=== PATIENT | male | born 1970 | race Caucasian/White ===

== ENCOUNTER 2016-11-14 14:37 | Emergency (ER) | payer OTHER ==
[~2016-11-14] VITALS: Ht 160 cm; Wt 69.4 kg
[~2016-11-14 14:37] MED LIST: LISI-420 PO; METF1000 PO; MIC5 PO; ORE25 PO; SULF1TAB12 PO
[2016-11-14 15:38] VITALS: BP 146/100
--- NOTE | 2016-11-14 19:24 | NUR ---
46 Y/O W/C/O LOWER ABD PAIN AND BLOOD IN URINE X TODAY. DENEIS ANY FEVER. NO S/S OF DISTRESS NOTED AT THIS MOMENT. ER MD EVALUATING PT.
--- NOTE | 2016-11-14 19:24 | NUR ---
Dr. Damico evaluating patient
--- NOTE | 2016-11-14 19:24 | NUR ---
PT TAKEN TO OF
[2016-11-14] MEDS ORDERED: PHENAZOPYRIDINE 100 MG TAB PO ONE (19:35)
[2016-11-14 19:51] LABS: BASOPHILS # (AUTO) 0.3 K/uL (0.00-0.22); BASOPHILS % (AUTO) 2.9 % (0.0-2.0); EOSINOPHILS # (AUTO) 0.2 K/uL (0-0.4); EOSINOPHILS % (AUTO) 2.4 % (0.0-4.0); HEMATOCRIT 48.3 % (36-52); HEMOGLOBIN 16.4 g/dL (12.0-18.0); LYMPHOCYTES # (AUTO) 3.4 K/uL (2.0-11.5); LYMPHOCYTES % (AUTO) 33.6 % (20.5-51.1); MEAN CORPUSCULAR HEMOGLOBIN 29 pg (27-31); MEAN CORPUSCULAR HGB CONC 34 g/dL (33-37); MEAN CORPUSCULAR VOLUME 86 fL (80-94); MONOCYTES # (AUTO) 0.8 K/uL (0.8-1.0); MONOCYTES % (AUTO) 8.2 % (1.7-9.3); NEUTROPHILS # (AUTO) 5.4 K/uL (1.8-7.7); NEUTROPHILS % (AUTO) 52.9 % (42.2-75.2); PLATELET COUNT (AUTO) 348 K/uL (140-450); RED BLOOD CELL COUNT(AUTO) 5.62 MIL/uL (4.20-6.10); RED CELL DISTRIBUTION WIDTH 12.3 % (11.6-13.7); WHITE BLOOD COUNT (AUTO) 10.1 K/uL (4.8-10.8)
[2016-11-14 20:07] LABS: ANION GAP 10.2 (8-16); CALCIUM 8.5 mg/dL (8.5-10.1); CARBON DIOXIDE 27.7 mmol/L (21-32); CREATININE 0.9 mg/dL (0.6-1.3); POTASSIUM 3.9 mmol/L (3.5-5.1)
[2016-11-14 20:19] LABS: APPEARANCE,URINE CLEAR (CLEAR); BILIRUBIN,URINE NEGATIVE (NEGATIVE); BLOOD, URINE NEGATIVE (NEGATIVE); LEUKOCYTE ESTERASE ,URINE NEGATIVE (NEGATIVE); NITRITE, URINE NEGATIVE (NEGATIVE); PROTEIN,URINE NEGATIVE (NEGATIVE); UGLUCOSE 3+ (NEGATIVE); UROBILINOGEN,URINE 0.2 EU/dL (0.2 - 1)
[2016-11-14 20:23] LABS: COLOR,URINE YELLOW (YELLOW)
[2016-11-14 20:24] LABS: BACTERIA,URINE None Seen /HPF (None Seen); RBC,URINE NONE SEEN /HPF (0-5); SQUAMOUS EPITHELIAL CELL,UR None Seen /LPF (0-3 (FEW)); WBC,URINE NONE SEEN /HPF (0-5)
[2016-11-14 20:39] VITALS: BP 147/88
--- NOTE | 2016-11-14 20:39 | NUR ---
PER ER MD PT STABLE WITH VSS. Written and verbal after care instructions given and explained. Patient alert, oriented and verbalized understanding of instructions. Ambulatory with steady gait. All questions addressed prior to discharge. ID band removed. Patient advised to follow up with PMD TOMORROW OR RETURN TO ER IF CONDITION WORSENS. Rx of CIPRO, AND PHENAZOPYRIDINE given. Patient educated on indication of medication including possible reaction and side effects. Opportunity to ask questions provided and answered.
[2016-11-16 06:16] LABS: CHLAMYDIA TRACHOMATIS AMP DNA Negative (Negative)
== END 2016-11-14 20:39 | disposition home or self-care (01) ==
LOC: MED 14:37
DX: R31.9 Hematuria, unspecified (principal); R30.0 Dysuria; E11.9 Type 2 diabetes mellitus without complications; I10 Essential (primary) hypertension
CPT/HCPCS: 36415; 80048; 81001; 85025; 87491; 99284

== ENCOUNTER 2018-02-11 23:07 | Emergency (ER) | payer BC, OTHER ==
[~2018-02-11] VITALS: Ht 160 cm; Wt 70.3 kg
[2018-02-11 23:13] VITALS: BP 150/100
--- NOTE | 2018-02-11 23:16 | NUR ---
TO BED # 2 AMBULATORY ,REPORT GIVEN TO TEX HARTLEY.
--- NOTE | 2018-02-11 23:17 | NUR ---
47 YO M TO ER FOR ANXITY AND INSOMNIA, PT STATES THAT HE HAS HAD DIFFICULTY SLEEPING X6 MO WITH AN INCREASE IN THE LAST MONTH AND BEEN INCONTINENT, FREQUENCY AND URGENCY, DENIES ANY BURNING ITICHING WITH URINATION. PT DENIES AHMET N/V/D, STATES BEING CONSTIPATED, LAST BM WAS TODAY. PT STATES THAT HE HAS NOT BEEN TAKING HIS DM MEDICATIONS PRESCRIBED DUE TO "THEY DONT TASTE GOOD". BS AT 375 IN TRIAGE . ER MD MADE AWEAR, WILL CONTINUE TO MONITOR
[2018-02-12 00:09] LABS: BASOPHILS # (AUTO) 0.1 K/uL (0.00-0.22); BASOPHILS % (AUTO) 0.6 % (0.0-2.0); EOSINOPHILS # (AUTO) 0.1 K/uL (0-0.4); EOSINOPHILS % (AUTO) 0.9 % (0.0-4.0); HEMATOCRIT 47.8 % (36-52); HEMOGLOBIN 16.8 g/dL (12.0-18.0); LYMPHOCYTES # (AUTO) 3.3 K/uL (2.0-11.5); LYMPHOCYTES % (AUTO) 30.8 % (20.5-51.1); MEAN CORPUSCULAR HEMOGLOBIN 29 pg (27-31); MEAN CORPUSCULAR HGB CONC 35 g/dL (33-37); MEAN CORPUSCULAR VOLUME 83.5 fL (80-94); MONOCYTES # (AUTO) 0.7 K/uL (0.8-1.0); MONOCYTES % (AUTO) 6.2 % (1.7-9.3); NEUTROPHILS # (AUTO) 6.5 K/uL (1.8-7.7); NEUTROPHILS % (AUTO) 61.5 % (42.2-75.2); PLATELET COUNT (AUTO) 354 K/uL (140-450); RED BLOOD CELL COUNT(AUTO) 5.73 MIL/uL (4.20-6.10); RED CELL DISTRIBUTION WIDTH 13.3 % (11.6-13.7); WHITE BLOOD COUNT (AUTO) 10.6 K/uL (4.8-10.8)
[2018-02-12 00:18] LABS: ANION GAP 14.6 (8-16); CARBON DIOXIDE 28.8 mmol/L (21-32); POTASSIUM 4.4 mmol/L (3.5-5.1)
[2018-02-12 00:23] LABS: ALBUMIN 3.7 g/dL (3.4-5.0)
--- NOTE | 2018-02-12 00:28 | NUR ---
XRAY AT BED SIDE
[2018-02-12 00:31] LABS: CREATINE KINASE MB 2.1 ng/mL (0-3.6)
[2018-02-12 01:24] VITALS: BP 152/94
--- NOTE | 2018-02-12 01:24 | NUR ---
Patient discharged with v/s stable. Written and verbal after care instructions given and explained. Patient verbalized understanding. Ambulatory with steady gait. All questions addressed prior to discharge. Advised to follow up with PMD.
== END 2018-02-12 01:24 | disposition home or self-care (01) ==
LOC: MED 23:07
DX: E11.65 Type 2 diabetes mellitus with hyperglycemia (principal); F41.9 Anxiety disorder, unspecified; I10 Essential (primary) hypertension; Z79.84 Long term (current) use of oral hypoglycemic drugs; Z79.899 Other long term (current) drug therapy
CPT/HCPCS: 36415; 71045; 80053; 82550; 82553; 84484; 85025; 99285; Q0092

== ENCOUNTER 2019-02-01 21:17 | Emergency (ER) | payer BC ==
[~2019-02-01] VITALS: Ht 160 cm; Wt 70.3 kg
[2019-02-01 21:20] VITALS: BP 157/89
--- NOTE | 2019-02-01 21:23 | NUR ---
TO LOBBY A/W BED, AMBULATORY
--- NOTE | 2019-02-01 22:11 | NUR ---
PATIENT AMB TO BED 8.
--- NOTE | 2019-02-01 22:15 | NUR ---
DR. LAI EVALUATING PATIENT.
--- NOTE | 2019-02-01 22:23 | NUR ---
PT TO ED WITH C/O ABD PAIN IN SUPRAPUBIC AREA WITH DYSURIA X2 DAYS. ABD IS SOFT NON TENDER, NO DISTENTION NOTED. NO BLADDER DISTENTION NOTED. BOWEL SOUNDS ACTIVE. PT PLACED INTO BED, PENDING MD CHAWLA.
--- NOTE | 2019-02-01 22:40 | NUR ---
PT WENT TO CT
[2019-02-01 22:54] LABS: APPEARANCE,URINE CLEAR (CLEAR); BILIRUBIN,URINE NEGATIVE (NEGATIVE); BLOOD, URINE NEGATIVE (NEGATIVE); COLOR,URINE YELLOW (YELLOW); LEUKOCYTE ESTERASE ,URINE NEGATIVE (NEGATIVE); NITRITE, URINE NEGATIVE (NEGATIVE); PH,URINE 6.5 (5.0-9.0); UGLUCOSE 3+ (NEGATIVE)
[2019-02-01 23:06] LABS: RBC,URINE 0 /HPF (0-5); WBC,URINE 0-5 /HPF (0-5)
[2019-02-02] MEDS ORDERED: BLOOD GLUCOSE MONITORING 1 DEV DEV FS ONE (00:15)
[2019-02-02 00:32] VITALS: BP 157/89
--- NOTE | 2019-02-02 00:32 | NUR ---
Patient discharged with v/s stable. Written and verbal after care instructions given and explained. Patient alert, oriented and verbalized understanding of instructions. Ambulatory with steady gait. All questions addressed prior to discharge. ID band removed. Patient advised to follow up with PMD. Rx of BACTRIM WAS given. Patient educated on indication of medication including possible reaction and side effects. Opportunity to ask questions provided and answered.
== END 2019-02-02 00:32 | disposition home or self-care (01) ==
LOC: MED 21:17
DX: R30.0 Dysuria (principal); R31.9 Hematuria, unspecified; R10.9 Unspecified abdominal pain; E11.9 Type 2 diabetes mellitus without complications; I10 Essential (primary) hypertension; Z79.2 Long term (current) use of antibiotics; Z79.84 Long term (current) use of oral hypoglycemic drugs; Z79.899 Other long term (current) drug therapy
CPT/HCPCS: 81001; 99284

== ENCOUNTER 2021-01-30 13:38 | Emergency (ER) | payer SELFPAY ==
[~2021-01-30] VITALS: Ht 160 cm; Wt 65.8 kg
[~2021-01-30 13:38] MED LIST changes: +GLYB-200 PO; +HYDR-4004 PO; -LISI-420 PO; +LISI-487 PO; -MIC5 PO; -ORE25 PO; +SULF-979 PO; -SULF1TAB12 PO
[2021-01-30 13:42] VITALS: BP 159/92
[2021-01-30] MEDS ORDERED: NACL 0.9% 1,000 ML IV ONE (14:05)
[2021-01-30 14:22] LABS: HEMOGLOBIN 16.5 g/dL (12.0-18.0)
[2021-01-30 14:26] LABS: BASOPHILS # (AUTO) 0.1 K/uL (0.00-0.22); BASOPHILS % (AUTO) 1.4 % (0.0-2.0); EOSINOPHILS # (AUTO) 0.3 K/uL (0-0.4); EOSINOPHILS % (AUTO) 2.8 % (0.0-4.0); HEMATOCRIT 46.7 % (36-52); LYMPHOCYTES # (AUTO) 1.5 K/uL (2.0-11.5); LYMPHOCYTES % (AUTO) 16.6 % (20.5-51.1); MEAN CORPUSCULAR HEMOGLOBIN 30 pg (27-31); MEAN CORPUSCULAR HGB CONC 35 g/dL (33-37); MEAN CORPUSCULAR VOLUME 84.6 fL (80-94); MONOCYTES # (AUTO) 0.5 K/uL (0.8-1.0); MONOCYTES % (AUTO) 5.7 % (1.7-9.3); NEUTROPHILS # (AUTO) 6.7 K/uL (1.8-7.7); NEUTROPHILS % (AUTO) 73.5 % (42.2-75.2); PLATELET COUNT (AUTO) 327 K/uL (140-450); RED BLOOD CELL COUNT(AUTO) 5.52 MIL/uL (4.20-6.10); RED CELL DISTRIBUTION WIDTH 13.2 % (11.6-13.7); WHITE BLOOD COUNT (AUTO) 9.1 K/uL (4.8-10.8)
[2021-01-30 14:30] LABS: ANION GAP 15.9 (8-16); CARBON DIOXIDE 25.4 mmol/L (21-32); POTASSIUM 4.3 mmol/L (3.5-5.1)
[2021-01-30 14:36] LABS: ALBUMIN 3.4 g/dL (3.4-5.0); TOTAL BILIRUBIN 0.9 mg/dL (0.0-1.0)
[2021-01-30] MEDS ORDERED: GLIP10TE PO (15:06)
[2021-01-30] MEDS ORDERED: SIMV40TA1 PO (15:06)
[2021-01-30] MEDS ORDERED: GABA300C PO (15:06)
[2021-01-30 18:04] VITALS: BP 136/84
== END 2021-01-30 18:05 | disposition home or self-care (01) ==
LOC: MED 13:38
DX: R19.7 Diarrhea, unspecified (principal); R07.9 Chest pain, unspecified; E11.65 Type 2 diabetes mellitus with hyperglycemia; E78.5 Hyperlipidemia, unspecified; I10 Essential (primary) hypertension; Z79.84 Long term (current) use of oral hypoglycemic drugs; Z79.899 Other long term (current) drug therapy; Z98.890 Other specified postprocedural states
CPT/HCPCS: 36415; 71045; 80053; 81002; 82948; 84484; 85025; 93005; 96360; 99285; J7030

== ENCOUNTER 2024-05-08 21:02 | Emergency (ER) | payer MEDICAID ==
[~2024-05-08] VITALS: Ht 160 cm; Wt 70.8 kg
[~2024-05-08 21:02] MED LIST changes: +GABA300C PO; +GLIP10TE1 PO; -GLYB-200 PO; -HYDR-4004 PO; -LISI-487 PO; +LISI-953 PO; +METF-1274 PO; -METF1000 PO; +SIMV-373 PO; -SULF-979 PO
[2024-05-08 21:11] VITALS: BP 158/93; PULSE 81; RESP 16; TEMP 97.5; O2SAT 100
[2024-05-09 00:08] LABS: BASOPHILS # (AUTO) 0.1 K/uL (0.00-0.22); BASOPHILS % (AUTO) 0.8 % (0.0-2.0); EOSINOPHILS # (AUTO) 0.2 K/uL (0-0.4); EOSINOPHILS % (AUTO) 1.7 % (0.0-4.0); HEMATOCRIT 44.5 % (36-52); HEMOGLOBIN 15.1 g/dL (12.0-18.0); LYMPHOCYTES % (AUTO) 34.8 % (20.5-51.1); MEAN CORPUSCULAR HEMOGLOBIN 29 pg (27-31); MEAN CORPUSCULAR HGB CONC 34 g/dL (33-37); MEAN CORPUSCULAR VOLUME 85.4 fL (80-94); MONOCYTES # (AUTO) 0.8 K/uL (0.8-1.0); NEUTROPHILS # (AUTO) 6.5 K/uL (1.8-7.7); NEUTROPHILS % (AUTO) 55.7 % (42.2-75.2); PLATELET COUNT (AUTO) 312 K/uL (140-450); RED CELL DISTRIBUTION WIDTH 13.1 % (11.6-13.7); WHITE BLOOD COUNT (AUTO) 11.6 K/uL (4.8-10.8)
[2024-05-09 00:24] LABS: ANION GAP 9.2 (8-16); CALCIUM 8.8 mg/dL (8.5-10.1); CARBON DIOXIDE 29.9 mmol/L (21-32); POTASSIUM 4.1 mmol/L (3.5-5.1)
[2024-05-09 00:27] LABS: INR 1.07 (0.8-1.2); PARTIAL THROMBOPLASTIN TIME 27.1 secs (22-35.6); PROTHROMBIN TIME 11.2 secs (10.8-13.4)
[2024-05-09 01:51] LABS: APPEARANCE,URINE CLEAR (CLEAR); BILIRUBIN,URINE NEGATIVE (NEGATIVE); BLOOD, URINE NEGATIVE (NEGATIVE); COLOR,URINE YELLOW (YELLOW); LEUKOCYTE ESTERASE ,URINE NEGATIVE (NEGATIVE); NITRITE, URINE NEGATIVE (NEGATIVE); PROTEIN,URINE NEGATIVE (NEGATIVE); UGLUCOSE 3+ (NEGATIVE)
[2024-05-09 04:05] VITALS: BP 160/88; PULSE 70; RESP 18; TEMP 97.6; O2SAT 100
== END 2024-05-09 04:17 | disposition short-term general hospital (02) ==
LOC: MED 21:02
DX: I65.23 Occlusion and stenosis of bilateral carotid arteries (principal); E11.9 Type 2 diabetes mellitus without complications; I10 Essential (primary) hypertension; Z79.899 Other long term (current) drug therapy
CPT/HCPCS: 36415; 70450; 70496; 70498; 71045; 72125; 80048; 81003; 84484; 85025; 85610; 85730; 86886; 86900; 86901; 93005; 99285; Q0092; Q9967